=== PATIENT | female | born 1970 ===

== ENCOUNTER 2018-12-21 14:39 | Inpatient (IN) | payer OTHER ==
[~2018-12-21 14:39] MED LIST: Gadodiamide 287 mg/ml 20 ml IV ONE
--- NOTE | 2018-12-21 16:02 | C.PDOC ---
History Of Present Illness 48 y/o female presents to the ED, referred from clinic for evaluation of worsening back pain. Patient reports having back pain for 3+ months, initially located in just the lower back with occasional radiation to the right hip. For the past month patient complains of pain also radiating down the bilateral legs as well as worsening, new-onset numbness from the bilateral knees down. Patient also states she does not realize when her bladder is full, however denies any fecal incontinence. Reports she feels numb in the pelvic area. Previously patient could walk without assistance, now requiring increasing help to ambulate. Today patient had to be carried to and from the clinic. Patient has been here before under another <Libertad Giraldo - Last Filed: 12/21/18 18:47> History Per: Patient History/Exam Limitations: no limitations Onset/Duration Of Symptoms: Days Current Symptoms Are (Timing): Still Present Associated Symptoms: New Weakness, New Numbness <EnzoLibertad - Last Filed: 12/21/18 18:47> <Harvinder Ku - Last Filed: 12/21/18 23:15> Time Seen by Provider: 12/21/18 15:30 Chief Complaint (Nursing): Weakness/Neurological Deficit Past Medical History Reviewed: Historical Data, Nursing Documentation, Vital Signs Vital Signs: Last Vital Signs Temp 98.6 F 12/21/18 14:42 Pulse 84 12/21/18 14:42 Resp 21 12/21/18 14:42 BP 136/90 12/21/18 14:42 Pulse Ox - Medical History PMH: No Chronic Diseases Surgical History: No Surg Hx Family History: States: Unknown Family Hx - Social History Hx Alcohol Use: No Hx Substance Use: No - Immunization History Hx Tetanus Toxoid Vaccination: No Hx Influenza Vaccination: No Hx Pneumococcal Vaccination: No <EnzoLibertad - Last Filed: 12/21/18 18:47> Vital Signs: Last Vital Signs Temp 98.0 F 12/21/18 22:08 Pulse 63 12/21/18 22:08 Resp 16 12/21/18 22:08 BP 132/88 12/21/18 22:08 Pulse Ox 100 12/21/18 22:08 <Harvinder Ku - Last Filed: 12/21/18 23:15> Review Of Systems Except As Marked, All Systems Reviewed And Found Negative. Constitutional: Negative for: Fever, Chills Cardiovascular: Negative for: Chest Pain Respiratory: Negative for: Cough, Shortness of Breath Gastrointestinal: Negative for: Nausea, Vomiting, Abdominal Pain, Diarrhea Genitourinary: Positive for: Incontinence (of urine). Negative for: Dysuria, Hematuria Musculoskeletal: Positive for: Back Pain (lumbar pain, radiating to right hip), Leg Pain (bilateral) Skin: Negative for: Rash, Lesions Neurological: Positive for: Weakness (increasing difficulty walking, no unilateral weakness), Numbness (from the knees down). Negative for: Dizziness <Libertad Giraldo - Last Filed: 12/21/18 18:47> Physical Exam - Physical Exam Appears: Non-toxic, No Acute Distress Skin: Warm, Dry, No Rash Head: Atraumatic, Normacephalic Eye(s): bilateral: Normal Inspection, PERRL, EOMI Oral Mucosa: Moist Neck: Normal ROM Chest: Symmetrical Cardiovascular: Rhythm Regular, No Murmur Respiratory: Normal Breath Sounds, No Accessory Muscle Use, Other (NARD) Gastrointestinal/Abdominal: Soft, No Tenderness, No Distention, No Guarding Back: Normal Inspection (no rash or skin changes), No Vertebral Tenderness, No Paraspinal Tenderness Extremity: Bilateral: Atraumatic, Normal Color And Temperature, Normal ROM (x 4) Neurological/Psych: Oriented x3, Normal Speech, Normal Cranial Nerves, Normal Motor (however limited full leg elevation due to back pain, bilaterally), No Normal Sensation (paresthesias to bilateral lower legs, up to the knees), Other (No elicitable patellar reflexes) <Libertad Giraldo Last Filed: 12/21/18 18:47> ED Course And Treatment - Laboratory Results Result Diagrams: 12/21/18 16:25 12/21/18 16:25 ECG: Interpreted By Me, Viewed By Me ECG Rhythm: Sinus Rhythm ECG Interpretation: No Acute Changes Rate From EC (bpm) - Other Rad CXR X-Ray: Read By Radiologist Interpretation: Accession No. : [id number]. Patient Name / ID : FATOUMATA STANLEY / [id number]. Exam Date : 12/21/2018 16:05:06 ( Approved ). Study C omment : Sex / Age : F / 48Y. Creator : Jai Fletcher MD. Dictator : Jai Fletcher MD. Jewelry Bench Worker : Battery Parts Assembler : Jai Fletcher MD. Approver2 : Report Date : 12/21/2018 16:52:33. My Comment : . Date of service: 12/21/2018. HISTORY: PARESTHESIA. COMPARISON: None available. FINDINGS: LUNGS: No active pulmonary disease. PLEURA: No significant pleural effusion identified, no pneumothorax apparent. CARDIOVASCULAR: No aortic atherosclerotic calcification present. Normal card iac size. No pulmonary vascular congestion. OSSEOUS STRUCTURES: No significant abnormalities. VISUALIZED UPPER ABDOMEN: Nonspecific limited right hemidiaphragm elevation noted. OTHER FINDINGS: None. IMPRESSION: No acute infiltrate, pleural effusion or pulmonary vascular congestion evident. No cardiomegaly. Limited right hemidiaphragm elevation, nonspecific. <EnzoLibertad - Last Filed: 12/21/18 18:47> - Laboratory Results Result Diagrams: 12/21/18 16:25 12/21/18 16:25 <Harvinder Ku - Last Filed: 12/21/18 23:15> Progress - Re-Evaluation Re-evaluation Note: 12/21/18 17:14 D/W DR CHEN [employer] SAL[employer]. MRI W/WO, WILL CONSULT. NO MEDICATION ADVISED AT THIS TIME PENDING MRI - Data Reviewed Data Reviewed: Lab, Diagnostic imaging, EKG <EnzoLibertad - Last Filed: 12/21/18 18:47> Medical Decision Making Medical Decision Making: Impression: Worsening back pain, numbness and paresthesias to LE, difficulty ambulating Initial Plan: - Labs - EKG - Chest x-ray - MRI lumbar spine - 30 mg IV Toradol - 2 mg IV Morphine - Pending bladder scan and reassess after treatment <EnzoLibertad - Last Filed: 12/21/18 18:47> Medical Decision Making: MRI report received at 10:31PM, results discussed with Dr. Chen who advised decadron and admission. <Harvinder Ku - Last Filed: 12/21/18 23:15> Disposition - Disposition Disposition Time: 19:00 <Libertad Giraldo - Last Filed: 12/21/18 18:47> Discussed With : Dalton Ochoa Doctor Will See Patient In The: Hospital Counseled Patient/Family Regarding: Diagnosis - Disposition Disposition Time: 23:14 <Harvinder Ku - Last Filed: 12/21/18 23:15> - Disposition Disposition: HOSPITALIZED Condition: STABLE Forms: [facility] (Rwandan) - Clinical Impression Clinical Impression: Back pain, Difficulty walking, Herniated disc, Radiculopathy - Scribe Statement The provider has reviewed the documentation as recorded by the Rosa Frederick Provider Attestation: All medical record entries made by the Rosa were at my direction and personally dictated by me. I have reviewed the chart and agree that the record accurately reflects my personal performance of the history, physical exam, medical decision making, and the department course for this patient. I have also personally directed, reviewed, and agree with the discharge instructions and disposition. <Libertad Giraldo - Last Filed: 12/21/18 18:47> Physician Patient Turnover Patient Signed Over To: Harvinder Ku Handoff Comments: FU MRI, DISPO <Libertad Giraldo - Last Filed: 12/21/18 18:47>
[2018-12-21 16:29] LABS: BASO # 0.1 K/uL (0.0-0.2); EOS % 0.4 % (0.0-4.0); HEMOGLOBIN 12.3 g/dL (11.0-16.0); LYMPH # 1.3 K/uL (1.0-4.3); LYMPH % 21.2 % (20.0-40.0); MEAN CELL VOLUME 88.2 fL (81.0-99.0); MEAN CORPUSCULAR HEMOGLOBIN 29.2 pg (27.0-31.0); MEAN CORPUSCULAR HGB CONC 33.1 g/dL (33.0-37.0); MEAN PLATELET VOLUME 7.5 fL (7.2-11.7); MONO # 0.3 K/uL (0.0-0.8); NEUT # 4.4 K/uL (1.8-7.0); NEUT % 72.4 % (50.0-75.0); RBC 4.22 Mil/uL (3.80-5.20); RED CELL DISTRIBUTION WIDTH 14.1 % (11.5-14.5); WHITE BLOOD COUNT 6.1 K/uL (4.8-10.8)
[2018-12-21 16:41] LABS: BLOOD UREA NITROGEN 14 mg/dL (7-17); CALCIUM 9.2 mg/dl (8.6-10.4); GFR NON-AFRICAN AMERICAN > 60
--- NOTE | 2018-12-21 16:56 | RAD ---
Date of service: 12/21/2018 HISTORY: PARESTHESIA COMPARISON: None available. FINDINGS: LUNGS: No active pulmonary disease. PLEURA: No significant pleural effusion identified, no pneumothorax apparent. CARDIOVASCULAR: No aortic atherosclerotic calcification present. Normal cardiac size. No pulmonary vascular congestion. OSSEOUS STRUCTURES: No significant abnormalities. VISUALIZED UPPER ABDOMEN: Nonspecific limited right hemidiaphragm elevation noted. OTHER FINDINGS: None. IMPRESSION: No acute infiltrate, pleural effusion or pulmonary vascular congestion evident. No cardiomegaly. Limited right hemidiaphragm elevation, nonspecific.
[2018-12-21] MEDS ORDERED: Dexamethasone 4 mg/1 ml IVP STA (22:42)
--- NOTE | 2018-12-21 23:33 | CP.PCM.HP ---
<Peter Max - Last Filed: 12/22/18 07:09> History of Present Illness - History of Present Illness History of Present Illness: PGY H&P for Medicine hospitalist CC: lower extremity numbness and weakness Translation obtained via Lissy: Ramone [id number] This is a 48 year old female with no significant PMH who was sent to the ED from the clinic due to complaints of lower extremity weakness, back pain, bowel and bladder incontinence worsening over the past 4 months. Pt states that she hasn't been able to walk for the past 3 days. She has no history of similar symptoms prior to the past four months. States that she strained her back 5 years ago, and has had right sided hip pain since that time. She describes bilateral back pain, hip pain and knee pain, associated with numbness to the feet, which has been causing her to have difficulty walking for the past 2 months. She does not go out much due to these symptoms, and holds onto things when she does go out. She endorses weight loss described as going from a pant size 5 to 3, and shirt size medium to small in the past 3 months. She describes a 4 month history of bladder incontinence as having to wait on the toilet seat to urinate, and then not feeling the urine exit. She describes bowel incontinence as having 1 bowel movements per day: and having to go to the toilet quickly or she will not make it. Denies headache, fever, chills, chest pain, sob, abdominal pain, n/v/d, upper extremity symptoms. Endorses a 1 year history of visual problems describes as difficulty reading small letters. Endorses 6 month history "inflammation and swelling" the bilateral medial knees PMH: denies PSH: denies Meds: Tyelnol for pain, Naproxen 250 mg PO BID for pain, Motrin for pain Allx: denies Fhx: Denies family history of similar symptoms. Family members are tall, with large hands, but denies any family history of heart, vision or lung problems. SHx: lives with one son. Her three sons help her. Denies history of smoking, alcohol or drug use. Present on Admission - Present on Admission Any Indicators Present on Admission: No Review of Systems - Review of Systems All systems: reviewed and no additional remarkable complaints except (as per HPI) Past Patient History - Past Social History Smoking Status: Never Smoked - PSYCHIATRIC Hx Substance Use: No - SURGICAL HISTORY Hx Surgeries: No - ANESTHESIA Hx Anesthesia: No Hx Anesthesia Reactions: No Meds Allergies/Adverse Reactions: Allergies Allergy/AdvReac Type Severity Reaction Status Date / Time No Known Allergies Allergy Unverified 12/21/18 14:43 Physical Exam - Constitutional Appears: Non-toxic, No Acute Distress - Head Exam Head Exam: ATRAUMATIC, NORMAL INSPECTION - Eye Exam Eye Exam: EOMI, Normal appearance, Nystagmus, PERRL - Neck Exam Neck exam: Positive for: Full Rom, Normal Inspection - Respiratory Exam Respiratory Exam: Clear to Auscultation Bilateral, NORMAL BREATHING PATTERN. absent: Accessory Muscle Use, Decreased Breath Sounds, Rales, Rhonchi, Wheezes, Stridor - Cardiovascular Exam Cardiovascular Exam: REGULAR RHYTHM, +S1, +S2. absent: Diastolic murmur, Systolic Murmur - GI/Abdominal Exam GI & Abdominal Exam: Normal Bowel Sounds, Soft. absent: Distended, Guarding, Hernia, Rebound, Rigid, Tenderness - Extremities Exam Extremities exam: Positive for: normal capillary refill, pedal pulses present. Negative for: calf tenderness, pedal edema Additional comments: (+) increased length of fingers for height (+) wing span is 67 inches - Neurological Exam Neurological exam: Alert, CN II-XII Intact, Oriented x3 Additional comments: (+) no proprioception appreciated in the toes bilaterally (+) decreased sensation in the posterior thighs bilaterally (+) left hamstring hypertonicity (+) right gluteal hypertonicity Rectal examination with Maye albarran RN: (+) no obvious anal wink reflex; diminished sensation in s3, s4, s5. No appreciable tightening of sphincter when pt asked to bear down. But normal sphincter tone on exam. - Expanded Neurological Exam Expanded Patient oriented to: person, place, time Cranial nerves: EOM's Intact: Normal Upper motor neuron: Babinski Sign: Abnormal Left, Abnormal Right (unable to elicit babinsky reflex) Sensory exam: Lower Extremity Light Touch: Abnormal Left, Abnormal Right (decreased sensation in L4, L5, S1), Lower Extremity Temperature: Normal, Upper Extremity Light Touch: Normal, Upper Extremity Temperature: Normal Neuro motor strength exam: Left Upper Extremity: 5, Right Upper Extremity: 5, Left Lower Extremity: 2/1 (only able to dorsiflex the toes bilaterally, minimal dorsiflexion at the ankle), Right Lower Extremity: 2/1 (only able to dorsiflex the toes bilaterally, minimal dorsiflexion at the ankle) DTR: Achilles Tendon Left: 0, Achilles Tendon Right: 1+ (delayed), Bicep Left: 2+, Bicep Right: 2+, Brachioradialis Left: 2+, Brachioradialis Right: 2+, Patellar Left: 0, Patellar Right: 0, Tricep Left: 2+, Tricep Right: 2+ Coma Scale Eye Opening: SPONTANEOUS Coma Scale Motor Response: OBEYS COMMANDS Coma Scale Verbal: Oriented Coma Scale Total: 15 - Psychiatric Exam Psychiatric exam: Normal Affect, Normal Mood - Skin Skin Exam: Dry, Normal Color, Warm Results - Vital Signs Recent Vital Signs: Last Vital Signs Temp 98.0 F 12/21/18 22:08 Pulse 63 12/21/18 22:08 Resp 16 12/21/18 22:08 BP 132/88 12/21/18 22:08 Pulse Ox 100 12/21/18 22:08 - Labs Result Diagrams: 12/21/18 16:25 12/21/18 16:25 Labs: Laboratory Results - last 24 hr 12/21/18 12/21/18 16:25 16:25 WBC 6.1 RBC 4.22 Hgb 12.3 Hct 37.3 MCV 88.2 MCH 29.2 MCHC 33.1 RDW 14.1 Plt Count 410 H MPV 7.5 Neut % (Auto) 72.4 Lymph % (Auto) 21.2 Lewis % (Auto) 5.0 Eos % (Auto) 0.4 Baso % (Auto) 1.0 Neut # (Auto) 4.4 Lymph # (Auto) 1.3 Lewis # (Auto) 0.3 Eos # (Auto) 0.0 Baso # (Auto) 0.1 Sodium 137 Potassium 4.2 Chloride 103 Carbon Dioxide 25 Anion Gap 12 BUN 14 Creatinine 0.5 L Est GFR ( Amer) > 60 Est GFR (Non-Af Amer) > 60 Random Glucose 96 Calcium 9.2 Magnesium 1.9 Assessment & Plan - Assessment and Plan (Free Text) Assessment: This is a 48 year old female with no significant PMH who was sent to the ED from the clinic due to complaints of lower extremity weakness, back pain, bowel and bladder incontinence worsening over the past 4 months. 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 Large, multiloculated intraspinal cystic structure containing enhancing internal septations as well as solid enhancing components, extending from T11-S1. It is unclear as to whether this lesion is intramedullary or extramedullary- intradural in location. The distal spinal cord at T10-11, however, does appear expanded. The differential di agnosis includes infectious etiologies such as neurocysticercosis, echinococcus, or other bacterial abscess. Neoplastic etiologies such as astrocytoma or ependymoma should be considered. Further evaluation with a dedicated pre-and postcontrast MRI of the cervical and thoracic spine is suggested. 2. Disc bulges with annular tears at L4-5 and L5-S1 result in mild ventral thecal sac indentation and left foraminal narrowing. 3. Bilateral adnexal cysts measure up to 2 cm. Neurosurgery, Dr. Reyna consulted. Recommendations appreciated. Neurology, Dr. Chen, consulted. Recommendations appreciated Valium 5 mg PO for muscle hypertonicity F/u official lumbar MRI reading F/u cervical spine, thoracic spine, brain MRI with and without contrast F/u RPR, B12 Weakness and weight loss F/u TSH, T4 No indication for GI ppx at this time Heparin 5000 units SC q12 HHD Case discussed with Dr. Don Max PGY1 <Dalton Ochoa P - Last Filed: 12/22/18 08:23> Results - Vital Signs Recent Vital Signs: Last Vital Signs Temp 97.6 F 12/22/18 07:00 Pulse 79 12/22/18 07:00 Resp 20 12/22/18 07:00 BP 115/72 12/22/18 07:00 Pulse Ox 98 12/22/18 07:00 - Labs Result Diagrams: 12/21/18 16:25 12/21/18 16:25 Labs: Laboratory Results - last 24 hr 12/21/18 12/21/18 16:25 16:25 WBC 6.1 RBC 4.22 Hgb 12.3 Hct 37.3 MCV 88.2 MCH 29.2 MCHC 33.1 RDW 14.1 Plt Count 410 H MPV 7.5 Neut % (Auto) 72.4 Lymph % (Auto) 21.2 Lewis % (Auto) 5.0 Eos % (Auto) 0.4 Baso % (Auto) 1.0 Neut # (Auto) 4.4 Lymph # (Auto) 1.3 Lewis # (Auto) 0.3 Eos # (Auto) 0.0 Baso # (Auto) 0.1 Sodium 137 Potassium 4.2 Chloride 103 Carbon Dioxide 25 Anion Gap 12 BUN 14 Creatinine 0.5 L Est GFR ( Amer) > 60 Est GFR (Non-Af Amer) > 60 Random Glucose 96 Calcium 9.2 Magnesium 1.9 Attending/Attestation - Attestation I have personally seen and examined this patient.: Yes I have fully participated in the care of the patient.: Yes I have reviewed all pertinent clinical information: Yes Notes (Text): 12/22/18 08:23 Assessed patient along with the resident, formulated the plan of care as above, agree with documentation.
[2018-12-22 00:32] VITALS: RESP 20
--- NOTE | 2018-12-22 07:04 | CP.PCM.PN ---
Subjective - Date & Time of Evaluation Date of Evaluation: 12/22/18 Time of Evaluation: 07:04 - Subjective Subjective: Hospitalist Service Pt seen and examined at bedside. Pt still reports diffuse motor and sensory deficits in the lower extremities, Pt also reports bladder and bowel incontinence. Pt denies chest pain sob fc nv. Objective - Vital Signs/Intake and Output Vital Signs (last 24 hours): Temp Pulse Resp BP Pulse Ox 97.9 F 80 20 110/67 97 12/22/18 04:32 12/22/18 04:32 12/22/18 04:32 12/22/18 04:32 12/22/18 04:32 - Medications Medications: Current Medications Heparin Sodium (Porcine) (Heparin) 5,000 units SC Q12 KELLEN Influenza Virus Vaccine (Flucelvax Quad 9025-4234 Syr) 60 mcg IM .ONCE ONE Stop: 12/24/18 10:01 - Labs Labs: 12/21/18 16:25 12/21/18 16:25 - Constitutional Appears: Non-toxic, No Acute Distress - Head Exam Head Exam: ATRAUMATIC, NORMAL INSPECTION - Eye Exam Eye Exam: EOMI, Normal appearance, Nystagmus (bilateral, no gaze palsy) Pupil Exam: NORMAL ACCOMODATION, PERRL - Respiratory Exam Respiratory Exam: Clear to Ausculation Bilateral. absent: Rales, Rhonchi, Wheezes - Cardiovascular Exam Cardiovascular Exam: Rubs, +S1, +S2 - GI/Abdominal Exam GI & Abdominal Exam: Soft. absent: Rigid, Tenderness - Rectal Exam Additional comments: poor anal sphincter tone - Extremities Exam Extremities Exam: Normal Capillary Refill. absent: Calf Tenderness, Pedal Edema, Tenderness - Back Exam Back Exam: vertebral tenderness - Neurological Exam Neurological Exam: Alert, Awake, CN II-XII Intact, Oriented x3 Neuro motor strength exam: Left Lower Extremity: 3, Right Lower Extremity: 3 Additional comments: Complete ROLANDO exam conducted @ 7AM Motor Subscores Upper Extremities R 25/25, L 25/25, total 50/50 Lower Extremities R 20/25, L 20/25, total 40/50 Sensory Subscores LightTouch R 45/56, LightTouch L 41/56, LightTouch Total: 86/112 PinPrick R 45/56, PinPrick L 46/56, PinPrick Total: 91/112 Volountary anal contraction absent, Deep Anal Pressure Absent L4 sensory incomplete S3,4 pinprick senstion preserved bilaterally - Psychiatric Exam Psychiatric exam: Normal Affect, Normal Mood - Skin Skin Exam: Normal Color, Warm Assessment and Plan - Assessment and Plan (Free Text) Assessment: This is a 48 year old female with no significant PMH who was sent to the ED from the clinic due to complaints of lower extremity weakness, back pain, bowel and bladder incontinence worsening over the past 4 months. 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 Large, multiloculated intraspinal cystic structure containing enhancing internal septations as well as solid enhancing components, extending from T11-S1. It is unclear as to whether this lesion is intramedullary or extramedullary- intradural in location. The distal spinal cord at T10-11, however, does appear expanded. The differential diagnosis includes infectious etiologies such as neurocysticercosis, echinococcus, or other bacterial abscess. Neoplastic etiologies such as astrocytoma or ependymoma should be considered. Further evaluation with a dedicated pre-and postcontrast MRI of the cervical and thoracic spine is suggested. 2. Disc bulges with annular tears at L4-5 and L5-S1 result in mild ventral thecal sac indentation and left foraminal narrowing. 3. Bilateral adnexal cysts measure up to 2 cm. Neurosurgery, Dr. Reyna consulted. Recommendations appreciated. Neurology, Dr. Chen, consulted. Recommendations appreciated Valium 5 mg PO for muscle hypertonicity F/u official lumbar MRI reading F/u cervical spine, thoracic spine, brain MRI with and without contrast F/u RPR, B12 Weakness and weight loss F/u TSH, T4 No indication for GI ppx at this time Heparin 5000 units SC q12 HHD
[2018-12-22 08:16] LABS: BASO % 0.7 % (0.0-2.0); HEMOGLOBIN 11.8 g/dL (11.0-16.0); LYMPH # 0.6 K/uL (1.0-4.3); LYMPH % 15.2 % (20.0-40.0); MEAN CELL VOLUME 88.5 fL (81.0-99.0); MEAN CORPUSCULAR HEMOGLOBIN 29.3 pg (27.0-31.0); MEAN CORPUSCULAR HGB CONC 33.1 g/dL (33.0-37.0); MEAN PLATELET VOLUME 7.8 fL (7.2-11.7); MONO # 0.1 K/uL (0.0-0.8); MONO % 1.7 % (0.0-10.0); NEUT # 3.2 K/uL (1.8-7.0); NEUT % 82.4 % (50.0-75.0); RBC 4.04 Mil/uL (3.80-5.20); RED CELL DISTRIBUTION WIDTH 13.9 % (11.5-14.5); WHITE BLOOD COUNT 3.8 K/uL (4.8-10.8)
[2018-12-22 08:37] LABS: ALB/GLOB RATIO 1.4 (1.0-2.1); ALBUMIN 4.3 g/dL (3.5-5.0); ALT/SGPT 16 U/L (9-52); AST/SGOT 18 U/L (14-36); BLOOD UREA NITROGEN 17 mg/dL (7-17); CALCIUM 9.3 mg/dl (8.6-10.4); GFR NON-AFRICAN AMERICAN > 60
[2018-12-22 10:11] LABS: FOLATE 17.1 ng/mL
--- NOTE | 2018-12-22 12:32 | CP.PCM.CON ---
History of Present Illness - History of Present Illness History of Present Illness: SPINE Pt seen and examined. Full consult dictated. Awaiting MRI scanning of rest of neural axis. If pathology is present elsewhere pt should be transferred to [facility] setting for [facility] treatment. Past Patient History - Past Social History Smoking Status: Never Smoked - MUSCULOSKELETAL/RHEUMATOLOGICAL Hx Falls: No - PSYCHIATRIC Hx Substance Use: No - SURGICAL HISTORY Hx Surgeries: No - ANESTHESIA Hx Anesthesia: No Hx Anesthesia Reactions: No Meds Allergies/Adverse Reactions: Allergies Allergy/AdvReac Type Severity Reaction Status Date / Time No Known Allergies Allergy Unverified 12/21/18 14:43 - Medications Medications: Current Medications Heparin Sodium (Porcine) (Heparin) 5,000 units SC Q12 KELLEN Last Admin: 12/22/18 09:26 Dose: 5,000 units Influenza Virus Vaccine (Flucelvax Quad 0675-7451 Syr) 60 mcg IM .ONCE ONE Stop: 12/24/18 10:01 Results - Vital Signs Recent Vital Signs: Last Vital Signs Temp 97.6 F 12/22/18 07:00 Pulse 79 12/22/18 07:00 Resp 20 12/22/18 07:00 BP 115/72 12/22/18 07:00 Pulse Ox 98 12/22/18 07:00 - Labs Result Diagrams: 12/22/18 08:11 12/22/18 08:11 Labs: Laboratory Results - last 24 hr 12/21/18 12/21/18 12/22/18 16:25 16:25 08:11 WBC 6.1 3.8 L RBC 4.22 4.04 Hgb 12.3 11.8 Hct 37.3 35.8 MCV 88.2 88.5 MCH 29.2 29.3 MCHC 33.1 33.1 RDW 14.1 13.9 Plt Count 410 H 417 H MPV 7.5 7.8 Neut % (Auto) 72.4 82.4 H Lymph % (Auto) 21.2 15.2 L Mcdowell % (Auto) 5.0 1.7 Eos % (Auto) 0.4 0.0 Baso % (Auto) 1.0 0.7 Neut # (Auto) 4.4 3.2 Lymph # (Auto) 1.3 0.6 L Mcdowell # (Auto) 0.3 0.1 Eos # (Auto) 0.0 0.0 Baso # (Auto) 0.1 0.0 Sodium 137 Potassium 4.2 Chloride 103 Carbon Dioxide 25 Anion Gap 12 BUN 14 Creatinine 0.5 L Est GFR ( Amer) > 60 Est GFR (Non-Af Amer) > 60 Random Glucose 96 Calcium 9.2 Phosphorus Magnesium 1.9 Total Bilirubin AST ALT Alkaline Phosphatase Total Protein Albumin Globulin Albumin/Globulin Ratio Vitamin B12 Folate Free T4 TSH 3rd Generation 12/22/18 12/22/18 08:11 08:11 WBC RBC Hgb Hct MCV MCH MCHC RDW Plt Count MPV Neut % (Auto) Lymph % (Auto) Mcdowell % (Auto) Eos % (Auto) Baso % (Auto) Neut # (Auto) Lymph # (Auto) Mcdowell # (Auto) Eos # (Auto) Baso # (Auto) Sodium 136 Potassium 4.5 Chloride 105 Carbon Dioxide 21 L Anion Gap 14 BUN 17 Creatinine 0.4 L Est GFR ( Amer) > 60 Est GFR (Non-Af Amer) > 60 Random Glucose 137 H D Calcium 9.3 Phosphorus 4.0 Magnesium 1.8 Total Bilirubin 0.4 AST 18 ALT 16 Alkaline Phosphatase 49 Total Protein 7.4 Albumin 4.3 Globulin 3.1 Albumin/Globulin Ratio 1.4 Vitamin B12 851 Folate 17.1 Free T4 1.16 TSH 3rd Generation 0.30 L
--- NOTE | 2018-12-22 13:13 | MRI ---
Date of service: 12/21/2018 PROCEDURE: MR LUMBAR SPINE WITH AND WITHOUT CONTRAST HISTORY: BACK PAIN, PARESTHESIA RO CAUDA EQUINA COMPARISON: None available. TECHNIQUE: Multiecho multiplanar sequences were performed through the lumbar spine with and without the use of intravenous contrast. 11 mL Omniscan was injected intravenously. FINDINGS: There is normal alignment of the lumbar lumbar vertebral bodies. There is normal lumbar lordosis. There is no acute fracture, spondylolysis or spondylolisthesis. Bone marrow signal is within normal limits. There is a large diffuse multilocular T1 hypointense and T2 hyperintense cystic lesion with in the lower thoracic and lumbar spinal canal. Although predominantly nonenhancing, there is some enhancing soft tissue/septations at the level of L1, L2 and L3. The lesion appears predominantly in the right spinal canal with apparent displacement of the conus medullaris and thecal sac to the left. There is mild expansion lower thoracic spinal canal. T12-L1: No disc herniation, spinal canal stenosis or neural foraminal narrowing. L1-2: No disc herniation, spinal canal stenosis or neural foraminal narrowing. L2-3: No disc herniation, spinal canal stenosis or neural foraminal narrowing. L3-4: Mild posterior disc bulge without spinal canal stenosis or neural foraminal narrowing. L4-5: Posterior disc bulge without central spinal canal stenosis. Also noted is superimposed left foraminal disc protrusion. Mild bilateral facet arthropathy contribute to mild left neural foraminal narrowing. L5-S1: No disc herniation, spinal canal stenosis or neural foraminal narrowing. Moderate bilateral facet arthropathy. OTHER FINDINGS: The paraspinous soft tissues are normal. Imaged portion of the retroperitoneum is within normal limits. There are incompletely imaged T2 hyperintense lesions in bilateral adnexa likely ovarian cyst. IMPRESSION: Large diffuse predominantly cystic multilocular predominantly right-sided intraspinal lesion with internal septation/enhancing soft tissue at the level of the upper lumbar spine with displacement of the conus medullaris to the left, it is indeterminate if the lesion is intramedullary or extramedullary-intradural in location. The differential considerations include infectious/inflammatory and neoplastic etiologies including neurocysticercosis, echinococcus, epidermoid, complex arachnoid cyst, astrocytoma and ependymoma. A preliminary report was provided by [facility].
[2018-12-22 14:41] LABS: SQUAMOUS EPITHIAL 3 /hpf (0-5); URINE BACTERIA RARE (<OCC); URINE BILIRUBIN NEGATIVE (NEGATIVE); URINE BLOOD 1+ (NEGATIVE); URINE CLARITY Hazy (Clear); URINE COLOR Yellow (YELLOW); URINE GLUCOSE (UA) NORMAL (Normal); URINE LEUKOCYTE ESTERASE 3+ Leu/uL (Negative); URINE PROTEIN NEGATIVE (NEGATIVE); URINE UROBILINOGEN NORMAL mg/dL (0.2-1.0)
--- NOTE | 2018-12-22 15:00 | MRI ---
Date of service: 12/22/2018 PROCEDURE: MR THORACIC SPINE WITHOUT CONTRAST HISTORY: parasthesis COMPARISON: None available. TECHNIQUE: Multiecho multiplanar sequences were performed through the thoracic spine without the use of intravenous contrast. FINDINGS: ALIGNMENT: Normal alignment of the thoracic vertebral bodies. Normal thoracic kyphosis. VERTEBRA: Vertebral body height are preserved. MARROW: Marrow signal unremarkable. PARASPINAL SOFT TISSUES: Normal. CORD: The upper and mid thoracic cord is normal in contour, caliber and has normal intrinsic signal. Incompletely imaged and characterized is a T1 hypointense and T2 hyperintense predominantly right-sided intraspinal lesion in the lower thoracic spinal canal with mild expansion of the thoracic canal and mass effect on the conus medullaris. DISCS: No large disc herniation, spinal canal stenosis, or neuroforaminal narrowing. OTHER FINDINGS: None. IMPRESSION: 1. Incompletely imaged and characterized intraspinal predominantly cystic lesion. Please refer to MRI of the lumbar spine without and with intravenous contrast for complete description of the lesion and differential considerations. 2. The upper and mid thoracic cord is normal in contour caliber and intrinsic signal.
--- NOTE | 2018-12-22 15:12 | MRI ---
Date of service: 12/22/2018 PROCEDURE: MR CERVICAL SPINE WITHOUT CONTRAST HISTORY: Paresthesia COMPARISON: None available. TECHNIQUE: Multiecho multiplanar sequences were performed through the cervical spine without the use of intravenous contrast. FINDINGS: There straightening of the cervical spine with loss of normal cervical lordosis. Vertebral alignment is normal. Vertebral height is maintained. There is no acute fracture or spondylolisthesis. Bone marrow signal is within normal limits. The craniocervical junction is normal. The atlantoaxial joint is normal. The cervical cord is normal in contour, caliber and has normal intrinsic signal. C2-C3: No disc herniation, spinal canal stenosis or neural foraminal narrowing. C3-C4: No disc herniation, spinal canal stenosis or neural foraminal narrowing. C4-C5: Disc osteophyte complex without spinal canal stenosis or neural foraminal narrowing. C5-C6: Broad-based disc osteophyte complex without spinal canal stenosis or neural foraminal narrowing. C6-C7: No disc herniation, spinal canal stenosis or neural foraminal narrowing. C7-T1: No disc herniation, spinal canal stenosis or neural foraminal narrowing. OTHER FINDINGS: None. IMPRESSION: Unremarkable non contrast enhanced MRI of the cervical spine.
--- NOTE | 2018-12-22 15:20 | MRI ---
Date of service: 12/22/2018 PROCEDURE: MRI BRAIN WITHOUT CONTRAST HISTORY: parasthesia COMPARISON: None available. TECHNIQUE: Multiplanar, multisequence MR images of the brain were obtained without intravenous contrast enhancement. FINDINGS: HEMORRHAGE: None DWI: No evidence of an acute or early subacute infarction. BRAIN PARENCHYMA: There are scattered T2/FLAIR hyperintense foci in left supratentorial white matter. No mass, mass effect or abnormal extra-axial fluid collection. No atrophy or chronic microvascular ischemic changes. VENTRICLES: There is mild age advanced global parenchymal volume loss and proportionate enlargement of the ventricles and cortical sulci. There is a cavum septum pellucidum. CRANIUM: There is normal bone marrow signal pattern. ORBITS: Grossly unremarkable. PARANASAL SINUSES/MASTOIDS: There are retention cysts/polyps in both maxillary sinuses. The remaining included paranasal sinuses and mastoid air cells are clear. VASCULAR SYSTEM: There are normal signal voids in the larger intracranial arteries. OTHER FINDINGS: None. IMPRESSION: No acute intracranial abnormality. Mild left supratentorial white matter changes are strictly nonspecific, the differential considerations include migraine headache effect, gliosis, early chronic microangiopathic changes, Lyme disease, vasculitis and demyelinating disease including multiple sclerosis. Clinical follow-up is advised.
[2018-12-22 16:50] VITALS: BP 126/76; PULSE 84; TEMP 98; O2SAT 100
[2018-12-22] MEDS ORDERED: Dexamethasone 20 MG in Sodium Chloride 0.9% 50 ML IV ONE (17:00)
--- NOTE | 2018-12-22 18:35 | CP.PCM.DIS ---
Provider - Provider Date of Admission: 12/21/18 23:16 Attending physician: Dalton Ochoa MD Consults: 12/21/18 23:19 Neurology Consult Stat Comment: notified Consulting Provider: Wild Chen Consulting Physician: Wild Chen Reason for Consult: radiculopathy 12/21/18 23:28 Physician Consult Stat Comment: Consulting Provider: Daquan Reyna Consulting Physician: Daquan Reyna Reason for Consult: radiculopathy Time Spent in preparation of Discharge (in minutes): 45 Diagnosis - Discharge Diagnosis (1) Cauda equina syndrome Status: Acute (2) Lumbar spine tumor Status: Acute Hospital Course - Lab Results Lab Results: Most Recent Lab Values WBC 3.8 K/uL (4.8-10.8) L 12/22/18 08:11 RBC 4.04 Mil/uL (3.80-5.20) 12/22/18 08:11 Hgb 11.8 g/dL (11.0-16.0) 12/22/18 08:11 Hct 35.8 % (34.0-47.0) 12/22/18 08:11 MCV 88.5 fL (81.0-99.0) 12/22/18 08:11 MCH 29.3 pg (27.0-31.0) 12/22/18 08:11 MCHC 33.1 g/dL (33.0-37.0) 12/22/18 08:11 RDW 13.9 % (11.5-14.5) 12/22/18 08:11 Plt Count 417 K/uL (130-400) H 12/22/18 08:11 MPV 7.8 fL (7.2-11.7) 12/22/18 08:11 Neut % (Auto) 82.4 % (50.0-75.0) H 12/22/18 08:11 Lymph % (Auto) 15.2 % (20.0-40.0) L 12/22/18 08:11 Worth % (Auto) 1.7 % (0.0-10.0) 12/22/18 08:11 Eos % (Auto) 0.0 % (0.0-4.0) 12/22/18 08:11 Baso % (Auto) 0.7 % (0.0-2.0) 12/22/18 08:11 Neut # (Auto) 3.2 K/uL (1.8-7.0) 12/22/18 08:11 Lymph # (Auto) 0.6 K/uL (1.0-4.3) L 12/22/18 08:11 Worth # (Auto) 0.1 K/uL (0.0-0.8) 12/22/18 08:11 Eos # (Auto) 0.0 K/uL (0.0-0.7) 12/22/18 08:11 Baso # (Auto) 0.0 K/uL (0.0-0.2) 12/22/18 08:11 Sodium 136 mmol/L (132-148) 12/22/18 08:11 Potassium 4.5 mmol/L (3.6-5.2) 12/22/18 08:11 Chloride 105 mmol/L (98-107) 12/22/18 08:11 Carbon Dioxide 21 mmol/L (22-30) L 12/22/18 08:11 Anion Gap 14 (10-20) 12/22/18 08:11 BUN 17 mg/dL (7-17) 12/22/18 08:11 Creatinine 0.4 mg/dL (0.7-1.2) L 12/22/18 08:11 Est GFR ( Amer) > 60 12/22/18 08:11 Est GFR (Non-Af Amer) > 60 12/22/18 08:11 Random Glucose 137 mg/dL (65-105) H D 12/22/18 08:11 Calcium 9.3 mg/dl (8.6-10.4) 12/22/18 08:11 Phosphorus 4.0 mg/dL (2.5-4.5) 12/22/18 08:11 Magnesium 1.8 mg/dL (1.6-2.3) 12/22/18 08:11 Total Bilirubin 0.4 mg/dL (0.2-1.3) 12/22/18 08:11 AST 18 U/L (14-36) 12/22/18 08:11 ALT 16 U/L (9-52) 12/22/18 08:11 Alkaline Phosphatase 49 U/L (38-126) 12/22/18 08:11 Total Protein 7.4 g/dL (6.3-8.3) 12/22/18 08:11 Albumin 4.3 g/dL (3.5-5.0) 12/22/18 08:11 Globulin 3.1 gm/dL (2.2-3.9) 12/22/18 08:11 Albumin/Globulin Ratio 1.4 (1.0-2.1) 12/22/18 08:11 Vitamin B12 851 pg/mL (239-931) 12/22/18 08:11 Folate 17.1 ng/mL 12/22/18 08:11 Free T4 1.16 ng/dL (0.78-2.19) 12/22/18 08:11 TSH 3rd Generation 0.30 mIU/L (0.46-4.68) L 12/22/18 08:11 Urine Color Yellow (YELLOW) 12/22/18 14:24 Urine Clarity Hazy (Clear) 12/22/18 14:24 Urine pH 5.0 (5.0-8.0) 12/22/18 14:24 Ur Specific [place] 1.020 (1.003-1.030) 12/22/18 14:24 Urine Protein Negative mg/dL (NEGATIVE) 12/22/18 14:24 Urine Glucose (UA) Normal mg/dL (Normal) 12/22/18 14:24 Urine Ketones Trace mg/dL (NEGATIVE) 12/22/18 14:24 Urine Blood 1+ (NEGATIVE) H 12/22/18 14:24 Urine Nitrate Negative (NEGATIVE) 12/22/18 14:24 Urine Bilirubin Negative (NEGATIVE) 12/22/18 14:24 Urine Urobilinogen Normal mg/dL (0.2-1.0) 12/22/18 14:24 Ur Leukocyte Esterase 3+ Jet/uL (Negative) H 12/22/18 14:24 Urine WBC (Auto) 38 /hpf (0-5) H 12/22/18 14:24 Urine RBC (Auto) 3 /hpf (0-3) 12/22/18 14:24 Ur Squamous Epith Cells 3 /hpf (0-5) 12/22/18 14:24 Urine Bacteria Rare (<OCC) 12/22/18 14:24 Urine Yeast (Budding) Few /hpf (NEGATIVE) H 12/22/18 14:24 RPR Nonreactive (NONREACTIVE) 12/22/18 08:11 - Hospital Course Hospital Course: CC: lower extremity numbness and weakness Translation obtained via Lissy: [place] [id number] This is a 48 year old female with no significant PMH who was sent to the ED from the clinic due to complaints of lower extremity weakness, back pain, bowel and bladder incontinence worsening over the past 4 months. Pt states that she hasn't been able to walk for the past 3 days. She has no history of similar symptoms prior to the past four months. States that she strained her back 5 years ago, and has had right sided hip pain since that time. She describes bilateral back pain, hip pain and knee pain, associated with numbness to the feet, which has been causing her to have difficulty walking for the past 2 months. She does not go out much due to these symptoms, and holds onto things when she does go out. She endorses weight loss described as going from a pant size 5 to 3, and shirt size medium to small in the past 3 months. She describes a 4 month history of bladder incontinence as having to wait on the toilet seat to urinate, and then not feeling the urine exit. She describes bowel incontinence as having 1 bowel movements per day: and having to go to the toilet quickly or she will not make it. Denies headache, fever, chills, chest pain, sob, abdominal pain, n/v/d, upper extremity symptoms. Endorses a 1 year history of visual problems describes as difficulty reading small letters. Endorses 6 month history "inflammation and swelling" the bilateral medial knees PMH: denies PSH: denies Meds: Tyelnol for pain, Naproxen 250 mg PO BID for pain, Motrin for pain Allx: denies Fhx: Denies family history of similar symptoms. Family members are tall, with large hands, but denies any family history of heart, vision or lung problems. SHx: lives with one son. Her three sons help her. Denies history of smoking, alcohol or drug use. complete ROLANDO exam completed, diffuse deficits noted in sweetie lower extremities. Given Decadron 5 IVP in ED, then 20 IVPB/30min while on hospitalist service as per Dr Pappas orders Spoke with Dr Percy GATES neurosurgeon who coordinated transfer to his team. Pt made aware and agrees with plan. Patient is being transferred to [facility]. Accepted by Neurosurgery Dr Pappas for cauda equina syndrome 2/2 to T12-L4 mass Discharge Exam - Head Exam Head Exam: ATRAUMATIC, NORMAL INSPECTION - Additional Findings Additional findings: - Constitutional Appears: Non-toxic, No Acute Distress - Head Exam Head Exam: ATRAUMATIC, NORMAL INSPECTION - Eye Exam Eye Exam: EOMI, Normal appearance, Nystagmus (bilateral, no gaze palsy) Pupil Exam: NORMAL ACCOMODATION, PERRL - Respiratory Exam Respiratory Exam: Clear to Ausculation Bilateral. absent: Rales, Rhonchi, Wheezes - Cardiovascular Exam Cardiovascular Exam: Rubs, +S1, +S2 - GI/Abdominal Exam GI & Abdominal Exam: Soft. absent: Rigid, Tenderness - Rectal Exam Additional comments: poor anal sphincter tone - Extremities Exam Extremities Exam: Normal Capillary Refill. absent: Calf Tenderness, Pedal Edema, Tenderness - Back Exam Back Exam: vertebral tenderness - Neurological Exam Neurological Exam: Alert, Awake, CN II-XII Intact, Oriented x3 Neuro motor strength exam: Left Lower Extremity: 3, Right Lower Extremity: 3 Additional comments: Complete ROLANDO exam conducted @ 7AM Motor Subscores Upper Extremities R 25/25, L 25/25, total 50/50 Lower Extremities R 20/25, L 20/25, total 40/50 Sensory Subscores LightTouch R 45/56, LightTouch L 41/56, LightTouch Total: 86/112 PinPrick R 45/56, PinPrick L 46/56, PinPrick Total: 91/112 Volountary anal contraction absent, Deep Anal Pressure Absent L4 sensory incomplete S3,4 pinprick senstion preserved bilaterally - Psychiatric Exam Psychiatric exam: Normal Affect, Normal Mood - Skin Skin Exam: Normal Color, Warm Discharge Plan - Follow Up Plan Condition: STABLE Disposition: Trans to Other Acute Care [facility] Additional Instructions: Patient is being transferred to [facility]. Accepted by Neurosurgery Dr Pappas for cauda equina syndrome 2/2 to T12-L4 mass Take care and be well, I hope to see you in the clinic in the future, happy and healthy Jt Li DO
[2018-12-24] MEDS ORDERED: Influenza Vaccine 60 mcg/0.5 mL SYR (4YR UP) IM ONE (10:00)
--- NOTE | 2018-12-25 07:58 | CON ---
DATE: 12/22/2018 REASON FOR CONSULTATION: Spinal cord compression. HISTORY OF PRESENT ILLNESS: The patient is a 48-year-old young lady who answers questions through someone else in the room translating. The chart was also reviewed. The patient states that approximately 4 months ago she began to have difficulty ambulating. She denies any trauma or any illness prior to its onset. She has not traveled anywhere out of the country at all. She states she has been having issues with her bowel and bladder control as well. She states the legs feel numb and tingly, sometimes burning, sometimes they feel cold. Her balance is off and she has to hold onto things that she walks around. She states that 5 or 6 months ago she had no problems at all. It is really just over the past 4 months since it began and it has gotten much worse of late. She was seen in the clinic and then sent to the emergency room yesterday and has been admitted. PAST MEDICAL HISTORY: She denies any significant past medical history. MEDICATIONS: She denies any prescription medications. ALLERGIES: SHE DENIES ANY MEDICAL ALLERGIES. PAST SURGICAL HISTORY: No past surgical history. PHYSICAL EXAMINATION: When I came into the room, she was ambulating between the bed and the night table again holding onto things but she was walking. She is unable to really walk on her toes or her heels. No straight leg raising is noted. She has very weak dorsiflexors of her ankles but she can do it against gravity but not really much against resistance. She can extend her knees bilaterally but again has weakness keeping them extended against resistance. Same is true for hip flexors. She states she can feel some light touch in her lower extremities but it is nothing similar to touching her arms, for example. Distal pulses are intact. No clonus is present. No hyperreflexia is noted. Babinski's are equivocal. LABORATORY DATA: She had an MRI done with contrast of her lumbar spine which shows what appears to be a possible intradural mass extending from T12 down toward L4. At the L4-L5 level, one can visualize the nerve roots again but it is difficult to see if this is true spinal fluid at that point or if it is something else going on. I do not see any extension out neural foramina which I would expect to see if it was an epidural process. Again no history of fevers, chills or any other illness. 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 This could be some type of cyst or some type of more solid structure. MRIs have been ordered of her brain, cervical and thoracic spine. To try and expedite matters, we are going to get these done first without contrast as is a 24-hour wait in order to administer contrast which would mean the studies basically could not be done until at least 5 o'clock tonight if not tomorrow morning. Once the studies are done, we will speak again with the patient. Certainly, while she has significant pathology here, we could make things a lot worse trying to do some type of surgical procedure on it and could worsen her neurologic status, such as paralyzing her. This will be explained to her. Certainly, if she has other issues going on in the brain or cervical, back/thoracic spinal areas then we would probably recommend transferring her to [place] for them to address this pathology. Otherwise, if no other pathology is seen, we can make plans on Tuesday to start the laminectomy at the upper portion of this and see exactly what pathology we are dealing with. If it appears to be a solid mass intraspinally then again if we can take a biopsy fine but otherwise not try and do some complete decompression that could be disastrous for her neurologically and refer her to a different setting. Again once she has these other studies done and they are reviewed, we will go back and speak to her once more to advise her of everything I discussed above. Thank you for allowing me to participate in the care of your patient. Dru Rios MD
== END 2018-12-22 21:15 | disposition short-term general hospital (02) | DRG 48 ==
LOC: C.ER 14:39 → C.9E 23:16 → C.6T 12-22 00:51
PROVIDERS: ADMIT Internal Medicine; ATTEND Internal Medicine
DX: G83.4 Cauda equina syndrome (principal); D16.6 Benign neoplasm of vertebral column; M54.10 Radiculopathy, site unspecified; G95.20 Unspecified cord compression